=== PATIENT | female | born 1995 | race American Indian/Alaskan Native ===

== ENCOUNTER 2019-10-04 09:50 | Emergency (ER) | payer SELFPAY ==
[2019-10-04 10:00] VITALS: BP 140/94
[2019-10-04] MEDS ORDERED: ONDANSETRON 4 MG/2 ML INJ IV ONE ×2 (10:36→12:39)
[2019-10-04] MEDS ORDERED: SODIUM CHLORIDE 0.9% 1000 ML 1,000 ML IV ONE (10:36)
[2019-10-04] MEDS ORDERED: MORPHINE 4 MG/1 ML INJ IV ONE ×2 (10:36→12:39)
[2019-10-04 10:39] LABS: Bacteria,Urine 2+ /HPF (Negative); Bilirubin,Urine NEG (Negative); Blood,Urine NEG (Negative); Color,Urine Amber (Yellow); Mucus,Urine 3+ /HPF
[2019-10-04 10:41] LABS: Basophils # (Auto) 0.1 K/mm3 (0.0-0.1); Eosinophils % (Auto) 0.7 % (0.0-4.3); Hematocrit 39.5 % (30.3-42.9); Lymphocytes # (Auto) 2.5 K/mm3 (1.2-5.4); Lymphocytes % (Auto) 33.8 % (13.4-35.0); Mean Corpuscular HGB Conc 33 % (30-34); Mean Corpuscular Volume 74 fl (79-97); Monocytes # (Auto) 0.4 K/mm3 (0.0-0.8); Monocytes % (Auto) 5.2 % (0.0-7.3); Platelet Count 407 K/mm3 (140-440); Red Blood Count 5.38 M/mm3 (3.65-5.03); Red Cell Distribution Width 15.2 % (13.2-15.2)
--- NOTE | 2019-10-04 10:41 | Emergency Department Report ---
ED Abdominal Pain HPI - General Chief Complaint: Abdominal Pain Stated Complaint: ABD PAIN Time Seen by Provider: 10/04/19 10:35 Source: patient Mode of arrival: Ambulatory Limitations: No Limitations - History of Present Illness Initial Comments: 24-year-old obese female presents to the emergency room complaining of mid upper abdominal pain that radiates to her back x1 week. Patient admits to nausea and vomiting. She reports that the pain is worse with movement eating or drinking. Patient does admit to having a past medical history of hypertension IBS and I AH. Patient reports her pain is a 7 out of 10 and when he gets worse he can be a 10 out of 10. Patient denies any known drug allergies but has multiple food allergies. Onset/Timin -: week(s) Location: epigastric Radiation: back Severity scale (0 -10): 7 Quality: other (dull) Worsens With: eating, vomiting, movement Associated Symptoms: nausea, vomiting. denies: fever, hematuria, anorexia - Related Data LMP Date: 09/15/19 Previous Rx's Medication Instructions Recorded Last Taken Type traMADoL [Ultram 50 MG tab] 50 mg PO Q6HR PRN #12 tablet 10/04/19 Unknown Rx Allergies Allergy/AdvReac Type Severity Reaction Status Date / Time Fish Containing Products Allergy Anaphylaxis Verified 10/04/19 09:55 shellfish derived Allergy Anaphylaxis Verified 10/04/19 09:55 ED Review of Systems ROS: Stated complaint: ABD PAIN Other details as noted in HPI Comment: All other systems reviewed and negative ED Past Medical Hx - Past Medical History Previous Medical History?: Yes Hx Hypertension: Yes Hx Headaches / Migraines: Yes Additional medical history: IBS, IAH - Surgical History Past Surgical History?: No - Social History Smoking Status: Never Smoker Substance Use Type: None - Medications Home Medications: Home Medications Medication Instructions Recorded Confirmed Last Taken Type traMADoL [Ultram 50 MG tab] 50 mg PO Q6HR PRN #12 tablet 10/04/19 Unknown Rx ED Physical Exam - General Limitations: No Limitations General appearance: alert, in no apparent distress - Head Head exam: Present: atraumatic, normocephalic - ENT ENT exam: Present: mucous membranes moist - Respiratory Respiratory exam: Present: normal lung sounds bilaterally. Absent: respiratory distress - Cardiovascular Cardiovascular Exam: Present: tachycardia - GI/Abdominal GI/Abdominal exam: Present: soft, tenderness. Absent: distended - Neurological Exam Neurological exam: Present: alert, oriented X3 - Psychiatric Psychiatric exam: Present: normal affect, normal mood - Skin Skin exam: Present: warm, dry, intact, normal color. Absent: rash ED Course Vital Signs 10/04/19 10/04/19 09:56 10:00 Temperature 98.8 F Pulse Rate 121 H 106 H Respiratory 18 Rate Blood Pressure 140/94 O2 Sat by Pulse 98 Oximetry ED Medical Decision Making - Lab Data Result diagrams: 10/04/19 10:24 10/04/19 10:24 - Radiology Data Radiology results: report reviewed Referring Physician:DARY LOPESPatient Name:GRIS COPELANDPatient ID:[id number] of :[id number]:FemaleAccession:[id number] Date:[id number] Status:[place] [address] Cat Scan Report Signed Patient: GRIS COPELAND MR#: [id number] : 1995 Acct:[id number] Age/Sex: 24 / F ADM Date: 10/04/19 Loc: ED Attending Dr: Ordering Physician: ROSA MORENO Date of Service: 10/04/19 Procedure(s): CT abdomen pelvis w con Accession Number(s): [id number] cc: ROSA MORENO CT abdomen pelvis w con INDICATION: Epigastric pain. TECHNIQUE: All CT scans at this location are performed using the following dose modulation technique: Automated exposure control. CONTRAST: Omnipaque 300, 100 cc IV injection. COMPARISON: None available. CT ABDOMEN: The parenchymal organs are unremarkable in appearance. Negative for abdominal mass, fluid or inflammation. The bowel is not dilated or thickened. The gallbladder contains several stones including a stone towards the neck. The gallbladder is partially contracted. No adjacent inflammation is identified. CT PELVIS: Negative for pelvic mass, fluid or inflammation. What is thought to be the appendix is unremarkable. IMPRESSION: Partially contracted gallbladder containing multiple stones including one towards the neck. Signer Name: Duncan Aguirre MD Signed: 10/04/2019 12:13 PM Workstation Name: [id number] Transcribed By: AMOS Dictated By: Duncan Aguirre MD Electronically Authenticated By: Duncan Aguirre MD Signed Date/Time: 10/04/19 1213 DD/ 1209 TD/TT: Critical care attestation.: If time is entered above; I have spent that time in minutes in the direct care of this critically ill patient, excluding procedure time. ED Disposition Clinical Impression: Gallstones, Severely overweight Disposition: DC-01 TO HOME OR SELFCARE Is pt being admited?: No Does the pt Need Aspirin: No Condition: Stable Instructions: Abdominal Pain (ED), Biliary Colic (ED) Additional Instructions: Labs are stable gallbladder shows you have multiple gallbladder stones. Important thing is to continue fluids take pain medication avoid fatty foods follow-up with a general surgeon. Prescriptions: traMADoL [Ultram 50 MG tab] 50 mg PO Q6HR PRN #12 tablet PRN Reason: Pain Referrals: PRIMARY CARE, [Primary Care Provider] - 3-5 Days RENETTA NAJERA MD [Staff Physician] - 3-5 Days NEENA RANKIN MD [Staff Physician] - 3-5 Days Forms: Work/School Release Form(ED)
[2019-10-04 11:05] LABS: Alanine Aminotransferase 17 units/L (7-56); Albumin 4.1 g/dL (3.9-5); BUN/Creatinine Ratio 13; Blood Urea Nitrogen 9 mg/dL (7-17); Calcium 9.5 mg/dL (8.4-10.2); Hemolysis Index 12
--- NOTE | 2019-10-04 12:18 | Cat Scan Report ---
CT abdomen pelvis w con INDICATION: Epigastric pain. TECHNIQUE: All CT scans at this location are performed using the following dose modulation technique: Automated exposure control. CONTRAST: Omnipaque 300, 100 cc IV injection. COMPARISON: None available. CT ABDOMEN: The parenchymal organs are unremarkable in appearance. Negative for abdominal mass, fluid or inflammation. The bowel is not dilated or thickened. The gallbladder contains several stones including a stone towards the neck. The gallbladder is partia lly contracted. No adjacent inflammation is identified. CT PELVIS: Negative for pelvic mass, fluid or inflammation. What is thought to be the appendix is unr emarkable. IMPRESSION: Partially contracted gallbladder containing multiple stones including one towards the nec k. Signer Name: Duncan Aguirre MD Signed: 10/04/2019 12:13 PM Workstation Name: [id number]
== END 2019-10-04 13:13 | disposition home or self-care (01) ==
LOC: ED 09:50
DX: K80.80 Other cholelithiasis without obstruction (principal); E66.3 Overweight; R11.2 Nausea with vomiting, unspecified; I10 Essential (primary) hypertension; G43.909 Migraine, unspecified, not intractable, without status migrainosus; K58.9 Irritable bowel syndrome, unspecified; Z68.44 Body mass index [BMI] 60.0-69.9, adult; Z79.899 Other long term (current) drug therapy; Z91.013 Allergy to seafood
CPT/HCPCS: 36415; 74177; 80053; 81001; 83690; 84703; 85025; 87086; 96361; 96374; 96375; 96376; 99284; J2270; J2405; J7030; Q9967

== ENCOUNTER 2019-10-15 14:29 | Emergency (ER) | payer SELFPAY ==
[2019-10-15] MEDS ORDERED: ONDANSETRON 4 MG/2 ML INJ IV ONE (17:02)
[2019-10-15] MEDS ORDERED: SODIUM CHLORIDE 0.9% 1000 ML 1,000 ML IV ONE (17:02)
--- NOTE | 2019-10-15 17:02 | Emergency Department Report ---
ED Abdominal Pain HPI - General Chief Complaint: Pain General Stated Complaint: BODYACHE/PAIN/ABD PAIN Time Seen by Provider: 10/15/19 17:01 Source: patient Mode of arrival: Ambulatory Limitations: No Limitations - History of Present Illness Initial Comments: 24 YO AA MORBIDLY OBESE FEMALE WITH KNOWN G STONES HERE WITH HER A/C ABD PAIN. DID NOT FOLLOW WITH [facility] INSTRUCTED NO N/V IN ER AMBULATORY AFEBRILE AND NON TOXIC MD Complaint: abdominal pain -: Gradual, week(s) Associated Symptoms: denies other symptoms - Related Data Previous Rx's Medication Instructions Recorded Last Taken Type Ondansetron [Zofran Odt] 4 mg PO Q8HR PRN #10 tab.rapdis 10/15/19 Unknown Rx metroNIDAZOLE [Flagyl] 500 mg PO Q12HR #14 tab 10/15/19 Unknown Rx Allergies Allergy/AdvReac Type Severity Reaction Status Date / Time Fish Containing Products Allergy Anaphylaxis Verified 10/04/19 09:55 shellfish derived Allergy Anaphylaxis Verified 10/04/19 09:55 ED Review of Systems ROS: Stated complaint: BODYACHE/PAIN/ABD PAIN Other details as noted in HPI Comment: All other systems reviewed and negative ED Past Medical Hx - Past Medical History Previous Medical History?: Yes Hx Hypertension: Yes Hx Headaches / Migraines: Yes Additional medical history: IBS, IAH, MORBID OBESITY - Surgical History Past Surgical History?: No - Family History Family history: no significant - Social History Smoking Status: Never Smoker Substance Use Type: None - Medications Home Medications: Home Medications Medication Instructions Recorded Confirmed Last Taken Type Ondansetron [Zofran Odt] 4 mg PO Q8HR PRN #10 tab.rapdis 10/15/19 Unknown Rx metroNIDAZOLE [Flagyl] 500 mg PO Q12HR #14 tab 10/15/19 Unknown Rx ED Physical Exam - General Limitations: No Limitations General appearance: alert, in no apparent distress - Head Head exam: Present: atraumatic, normocephalic - Eye Eye exam: Present: normal appearance - ENT ENT exam: Present: mucous membranes moist - Neck Neck exam: Present: normal inspection - Respiratory Respiratory exam: Present: normal lung sounds bilaterally. Absent: respiratory distress - Cardiovascular Cardiovascular Exam: Present: regular rate, normal rhythm, other (HR 100 OB EXAM). Absent: systolic murmur, diastolic murmur, rubs, gallop - GI/Abdominal GI/Abdominal exam: Present: soft, normal bowel sounds - Extremities Exam Extremities exam: Present: normal inspection - Back Exam Back exam: Present: normal inspection - Neurological Exam Neurological exam: Present: alert, oriented X3 - Psychiatric Psychiatric exam: Present: normal affect, normal mood - Skin Skin exam: Present: warm, dry, intact, normal color. Absent: rash ED Course Vital Signs 10/15/19 10/15/19 14:31 14:34 Temperature 99.3 F 99.3 F Pulse Rate 113 H Respiratory 20 Rate Blood Pressure 133/91 O2 Sat by Pulse 99 Oximetry ED Medical Decision Making - Lab Data Result diagrams: 10/15/19 17:16 10/15/19 17:16 - Medical Decision Making Labs 10/15/19 10/15/19 10/15/19 17:16 17:16 17:16 WBC 11.9 H RBC 5.45 H Hgb 12.7 Hct 39.8 MCV 73 L MCH 23 L MCHC 32 RDW 15.5 H Plt Count 441 H Sodium 135 L Potassium 4.2 Chloride 100.1 Carbon Dioxide 21 L Anion Gap 18 BUN 7 Creatinine 0.8 Estimated GFR > 60 BUN/Creatinine Ratio 9 Glucose 113 H Calcium 9.8 Total Bilirubin 0.60 AST 14 ALT 14 Alkaline Phosphatase 80 Total Protein 8.1 Albumin 4.3 Albumin/Globulin Ratio 1.1 Lipase 22 HCG, Qual Negative Urine Color Urine Turbidity Urine pH Ur Specific [place] Urine Protein Urine Glucose (UA) Urine Ketones Urine Blood Urine Nitrite Urine Bilirubin Urine Urobilinogen Ur Leukocyte Esterase Urine WBC (Auto) Urine RBC (Auto) U Epithel Cells (Auto) Urine Bacteria (Auto) Urine Mucus Urine HCG, Qual 10/15/19 Unknown WBC RBC Hgb Hct MCV MCH MCHC RDW Plt Count Sodium Potassium Chloride Carbon Dioxide Anion Gap BUN Creatinine Estimated GFR BUN/Creatinine Ratio Glucose Calcium Total Bilirubin AST ALT Alkaline Phosphatase Total Protein Albumin Albumin/Globulin Ratio Lipase HCG, Qual Urine Color Yellow Urine Turbidity Clear Urine pH 5.0 Ur Specific [place] 1.024 Urine Protein <15 mg/dl Urine Glucose (UA) Neg Urine Ketones Tr Urine Blood Neg Urine Nitrite Neg Urine Bilirubin Neg Urine Urobilinogen 4.0 Ur Leukocyte Esterase Neg Urine WBC (Auto) 1.0 Urine RBC (Auto) 2.0 U Epithel Cells (Auto) 1.0 Urine Bacteria (Auto) 2+ Urine Mucus 3+ Urine HCG, Qual Negative Vital Signs 10/15/19 10/15/19 14:31 14:34 Temperature 99.3 F 99.3 F Pulse Rate 113 H Respiratory 20 Rate Blood Pressure 133/91 O2 Sat by Pulse 99 Oximetry Labs noted Medicated with Flagyl IV and normal saline in the ER. Patient was given anti- medics. She is not actively vomiting although she states she is nauseated. Vital signs are stable I have educated patient and her mother via phone the need to follow-up for her gallstones. They were nonobstructive on last imaging. She was not reimaged today due to her recent CT scan and a stable lipase/LFTs. Patient being discharged home with an understanding of her need for follow-up. - Differential Diagnosis Known gallbladder disease Critical care attestation.: If time is entered above; I have spent that time in minutes in the direct care of this critically ill patient, excluding procedure time. ED Disposition Clinical Impression: Gallstones, Severely overweight Disposition: DC-01 TO HOME OR SELFCARE Is pt being admited?: No Does the pt Need Aspirin: No Condition: Stable Instructions: Cholecystitis (ED), Biliary Colic (ED) Additional Instructions: LOW FAT DIET STAY WELL HYDRATED MOTRIN OR TYLENOL FOR PAIN ZOFRAN FOR NAUSEA FOLLOW UP WITH [facility] YOU HAVE PLANNED THESE STONES WILL NOT GO AWAY ON THEIR OWN Prescriptions: metroNIDAZOLE [Flagyl] 500 mg PO Q12HR #14 tab Ondansetron [Zofran Odt] 4 mg PO Q8HR PRN #10 tab.rapdis PRN Reason: Vomiting Referrals: CHRISTINE HUDDLESTON MD [Staff Physician] - 3-5 Days RENETTA NAJERA MD [Staff Physician] - 3-5 Days Time of Disposition: 17:07
[2019-10-15] MEDS ORDERED: HYDROmorphone 1 MG/1 ML INJ IV ONE (17:06)
[2019-10-15 17:53] LABS: Bacteria,Urine 2+ /HPF (Negative); Bilirubin,Urine NEG (Negative); Blood,Urine NEG (Negative); Color,Urine Yellow (Yellow); Mucus,Urine 3+ /HPF; Protein,Urine <15 mg/dL mg/dL (Negative)
[2019-10-15 17:56] LABS: Hematocrit 39.8 % (30.3-42.9); Hemoglobin 12.7 gm/dl (10.1-14.3); Mean Corpuscular HGB Conc 32 % (30-34); Mean Corpuscular Volume 73 fl (79-97); Platelet Count 441 K/mm3 (140-440); Red Blood Count 5.45 M/mm3 (3.65-5.03); Red Cell Distribution Width 15.5 % (13.2-15.2)
[2019-10-15 17:58] LABS: HCG Qualitative,Urine Negative (Negative)
[2019-10-15] MEDS ORDERED: CLINDAMYCIN 600 MG/50 mL 600 MG/50 ML BAG IV ONE (18:00)
[2019-10-15 18:15] LABS: Alanine Aminotransferase 14 units/L (7-56); Albumin 4.3 g/dL (3.9-5); BUN/Creatinine Ratio 9; Blood Urea Nitrogen 7 mg/dL (7-17); Calcium 9.8 mg/dL (8.4-10.2); Hemolysis Index 4
[2019-10-15 21:31] VITALS: BP 145/98
== END 2019-10-15 21:32 | disposition home or self-care (01) ==
LOC: ED 14:29
DX: K80.80 Other cholelithiasis without obstruction (principal); E66.3 Overweight; I10 Essential (primary) hypertension; G43.909 Migraine, unspecified, not intractable, without status migrainosus; Z79.899 Other long term (current) drug therapy; Z91.013 Allergy to seafood
CPT/HCPCS: 36415; 80053; 81001; 81025; 83690; 84703; 85027; 96365; 96375; 99283; J1170; J2405; J7030

== ENCOUNTER 2020-02-14 08:08 | Outpatient (CLI) | payer OTHER ==
--- NOTE | 2020-02-14 09:51 | XRay Report ---
LUMBAR SPINE AP AND LATERAL VIEWS INDICATION / CLINICAL INFORMATION: BACK PAIN. COMPARISON: None available. FINDINGS: BONES/JOINT(S): No acute fracture or subluxation. No significant degenerative changes. SOFT TISSUES: No significant abnormality. ADDITIONAL FINDINGS: None. Signer Name: Vitor Truong MD Signed: 02/14/2020 9:47 AM Workstation Name: [id number]
--- NOTE | 2020-02-14 09:52 | XRay Report ---
AP and lateral views of bilateral knees INDICATION / CLINICAL INFORMATION: BILATERAL KNEE PAIN. COMPARISON: None available. FINDINGS: BONES/JOINT(S): No acute fracture or subluxation. No significant degenerative changes. No joint effus ion. No focal bone lesion. SOFT TISSUES: No significant abnormality. ADDITIONAL FINDINGS: None. Signer Name: Vitor Truong MD Signed: 02/14/2020 9:47 AM Workstation Name: [id number]
== END 2020-02-14 08:09 | disposition home or self-care (01) ==
LOC: XRAY 08:08
PROVIDERS: ATTEND Internal Medicine
DX: M25.561 Pain in right knee (principal); M25.562 Pain in left knee; M54.5 Low back pain; F32.89 Other specified depressive episodes; E11.9 Type 2 diabetes mellitus without complications; G47.00 Insomnia, unspecified; G47.419 Narcolepsy without cataplexy; D64.9 Anemia, unspecified; K21.9 Gastro-esophageal reflux disease without esophagitis; I10 Essential (primary) hypertension; F43.10 Post-traumatic stress disorder, unspecified; G93.2 Benign intracranial hypertension; F25.9 Schizoaffective disorder, unspecified
CPT/HCPCS: 72100